=== PATIENT | female | born 1975 | race Caucasian/White ===

== ENCOUNTER → 2018-01-26 | Outpatient (CLI) | payer BC ==
[~2018-01-26] MED LIST: ALPRAZOLAM1 MG PO; BUSPAR; CELEXA; DEPO-PROVER150 MG/M1 IM; DIAZEPAM PO; HYOMAX; WELLBUTRIN PO; [UNRECOGNIZED DRUG - OTHER]; [UNRECOGNIZED DRUG - OTHER]
== END ==
LOC: COL.RAD 12:55
DX: M48.8X6 Other specified spondylopathies, lumbar region (principal); M51.26 Other intervertebral disc displacement, lumbar region; M48.061 Spinal stenosis, lumbar region without neurogenic claudication

== ENCOUNTER 2018-04-22 14:54 | Outpatient (CLI) | payer BC ==
[~2018-04-22] VITALS: Ht 175.3 cm; Wt 77.0 kg
[2018-04-22] MEDS ORDERED: BUSPAR DIVIDOSE15 MG PO (15:07)
[2018-04-22 15:09] VITALS: BP 116/67; PULSE 75; TEMP 98.8
[2018-04-22] MEDS ORDERED: ZOLOFT 100MG100 MG PO (15:09)
[2018-04-22] MEDS ORDERED: TENEX PO (15:10)
[2018-04-22] MEDS ORDERED: RELAFEN 50500 MG/TAB PO (15:11)
[2018-04-22] MEDS ORDERED: PRILOSEC 20MG20 MG PO (15:11)
[2018-04-22] MEDS ORDERED: VITAMIN D32000 I1 PO (15:12)
[2018-04-22] MEDS ORDERED: CLARITIN 1010 MG/TAB PO (15:12)
[2018-04-22] MEDS ORDERED: TYLENOL 8 HR PO (15:13)
== END 2018-04-22 16:30 | disposition home or self-care (01) ==
LOC: EUO 14:54
DX: M81.0 Age-related osteoporosis without current pathological fracture (principal)
CPT/HCPCS: J3489

== ENCOUNTER 2020-07-05 14:50 | Outpatient (CLI) | payer BC ==
[~2020-07-05] VITALS: Ht 175.3 cm; Wt 77.2 kg
[~2020-07-05 14:50] MED LIST changes: +BUSPAR DIVIDOSE15 MG PO; +CLARITIN 1010 MG/TAB PO; +PRILOSEC 20MG20 MG PO; +RELAFEN 50500 MG/TAB PO; +TENEX PO; +TYLENOL 8 HR PO; +VITAMIN D32000 I1 PO; +ZOLOFT 100MG100 MG PO
[2020-07-05 15:04] VITALS: BP 119/76; PULSE 80; TEMP 98.9
[2020-07-05] MEDS ORDERED: FLONASEALLERGY NS (15:21)
[2020-07-05] MEDS ORDERED: CLARITIN 1010 MG/TAB PO (15:22)
[2020-07-05] MEDS ORDERED: XYZAL5 MG PO (15:23)
[2020-07-05] MEDS ORDERED: TYLENOL PM EXTR1 TA1 PO (15:24)
== END 2020-07-05 17:11 | disposition home or self-care (01) ==
LOC: EUO 14:50
DX: M81.0 Age-related osteoporosis without current pathological fracture (principal)
CPT/HCPCS: J3489

== ENCOUNTER → 2021-08-26 | Outpatient (CLI) | payer BC ==
[~2021-08-26] MED LIST changes: +FLONASEALLERGY NS; +PRIL40 PO; -PRILOSEC 20MG20 MG PO; +PROVIGIL 100MG100 MG PO; +TYLENOL PM EXTR1 TA1 PO; +XYZAL5 MG PO
== END ==
LOC: COL.RAD 07:31
DX: K41.90 Unilateral femoral hernia, without obstruction or gangrene, not specified as recurrent (principal); K80.80 Other cholelithiasis without obstruction
CPT/HCPCS: Q9967

== ENCOUNTER 2021-09-05 15:10 | Outpatient (CLI) | payer BC ==
[~2021-09-05] VITALS: Ht 175.3 cm; Wt 82.3 kg
[~2021-09-05 15:10] MED LIST changes: -PROVIGIL 100MG100 MG PO
[2021-09-05 15:45] VITALS: BP 137/78; PULSE 81; TEMP 98.4
[2021-09-05] MEDS ORDERED: PROVIGIL 100MG100 MG PO (16:00)
== END 2021-09-05 18:27 | disposition home or self-care (01) ==
LOC: EUO 15:10
DX: Z79.899 Other long term (current) drug therapy (principal)
CPT/HCPCS: J3489

== ENCOUNTER → 2023-11-05 | Outpatient (CLI) | payer OTHER ==
[~2023-11-05] MED LIST changes: +PROVIGIL 100MG100 MG PO; +RECLAST5 MG/100 M IV; +RITALIN 20M20 MG/TAB PO
== END ==
LOC: MC.RAD 12:55
DX: Z12.31 Encounter for screening mammogram for malignant neoplasm of breast (principal)